=== PATIENT | female | born 1975 | race African-American/Black ===

== ENCOUNTER 2020-01-04 17:50 | Emergency (ER) | payer OTHER, SELFPAY ==
[~2020-01-04] VITALS: Ht 170.2 cm; Wt 88.0 kg
[2020-01-04 18:07] VITALS: BP 142/80
[2020-01-04] MEDS ORDERED: MAGNESIUM/ALUMINUM HYDROXIDE/SIMETHICONE 30ML UDC PO STA (19:29)
[2020-01-04] MEDS ORDERED: ACETAMINOPHEN 325MG TABLET PO STA (19:29)
[2020-01-04] MEDS ORDERED: ONDANSETRON 4MG ODT PO STA (19:29)
== END 2020-01-04 21:04 | disposition left against medical advice (07) ==
LOC: ER 17:50
DX: M79.18 Myalgia, other site (principal); R06.02 Shortness of breath
CPT/HCPCS: 99281; Q0162